=== PATIENT | male | born 1960 | race Caucasian/White ===

== ENCOUNTER 2018-09-13 21:11 | Emergency (ER) | payer BC ==
[~2018-09-13] VITALS: Ht 190.5 cm; Wt 107.3 kg
[~2018-09-13 21:11] MED LIST: ASPIRIN E.C. 8181 MG PO; MOTRIN 200200 MG/TAB PO
[2018-09-13 21:15] VITALS: TEMP 96.9
[2018-09-13 22:22] LABS: BASO # 0.1 (0.0-0.2); BASO % 0.4 % (0.0-2.0); EOS # 0.1 (0.0-0.7); GRAN # 9.9 (1.4-6.5); GRAN % 82.5 % (42.2-75.2); HEMATOCRIT 43.8 % (42.0-52.0); HEMOGLOBIN 14.7 g/dl (13.5-18.0); LYMPH # 1.1 (1.2-3.4); LYMPH % 9.2 % (20.0-51.0); MEAN CELL VOLUME 91 fl (80.0-100.0); MEAN CORPUSCULAR HEMOGLOBIN 31 pg (27.0-31.0); MEAN CORPUSCULAR HGB CONC 34 g/dl (33.0-37.0); MEAN PLATELET VOLUME 9.6 fl (7.4-10.4); MONO # 0.8 (0.1-0.6); MONO % 6.6 % (1.7-9.3); PLATELET COUNT 223 K/mm3 (130-400); RED BLOOD COUNT 4.79 M/mm3 (4.20-5.60); REDCELL DISTRIBUTION WIDTH-CV 12.5 % (11.5-14.5)
[2018-09-13 22:36] LABS: LIPASE 40 U/L (23-300)
[2018-09-13 22:41] LABS: C-REACTIVE PROTEIN < 0.5 mg/dL (0.0-0.9)
[2018-09-13 22:45] LABS: TROPONIN-I 0.013 ng/mL (0.000-0.034)
[2018-09-13] MEDS ORDERED: SYNTHROID0.1 MG/TAB PO (23:25)
[2018-09-13] MEDS ORDERED: PROLASTIN C IV (23:25)
[2018-09-13] MEDS ORDERED: TRELEGY ELLIPT1 EACH IH (23:26)
[2018-09-13 23:39] LABS: ALBUMIN 3.6 gm/dL (3.5-5.0); BILIRUBIN,TOTAL 0.3 mg/dL (0.0-1.0); CALCIUM 8.9 mg/dL (8.4-10.2); CREATININE, serum 0.98 mg/dL (0.66-1.25); POTASSIUM 4.1 mmol/L (3.4-5.0); TOTAL PROTEIN 6.7 gm/dL (6.4-8.2)
[2018-09-13 23:42] LABS: COLLECTION METHOD CLEAN CATCH
[2018-09-13 23:47] LABS: MUCOUS Present /lpf; PH 6 (5-8); SQUAMOUS EPITHELIAL None Seen /hpf; URINE APPEARANCE Clear; URINE BACTERIA None Seen /hpf; URINE BILIRUBIN Negative (NEGATIVE); URINE BLOOD Negative (NEGATIVE); URINE COLOR Yellow; URINE GLUCOSE Negative (NEGATIVE); URINE KETONE Negative (NEGATIVE); URINE LEUKOCYTE ESTERASE Negative (NEGATIVE); URINE NITRATE Negative (NEGATIVE); URINE PROTEIN(semi-quant) Negative (NEGATIVE); URINE RBC 0-2 /hpf; URINE UROBILINOGEN Negative (NEGATIVE)
[2018-09-14 00:05] VITALS: BP 115/76; PULSE 63
[2018-09-14] MEDS ORDERED: ZOFRAN ODT4 MG PO (00:33)
[2018-09-14] MEDS ORDERED: NORCO 325 MG-51 TAB PO (00:33)
== END 2018-09-14 00:55 | disposition home or self-care (01) ==
LOC: COL.ER 21:11
PROVIDERS: Family Medicine; Physician Assistant
DX: K46.9 Unspecified abdominal hernia without obstruction or gangrene (principal)
CPT/HCPCS: J2405; J7030; Q9967

== ENCOUNTER → 2018-09-15 | Outpatient (CLI) | payer BC ==
[~2018-09-15] MED LIST changes: +NORCO 325 MG-51 TAB PO; +PROLASTIN C IV; +SYNTHROID0.1 MG/TAB PO; +TRELEGY ELLIPT1 EACH IH; +ZOFRAN ODT4 MG PO
== END ==
LOC: COL.RAD 09:41
DX: R10.11 Right upper quadrant pain (principal)

== ENCOUNTER → 2018-10-14 | Outpatient (CLI) | payer BC | LOC: COL.RAD 10-04 07:30 | DX: R10.9 Unspecified abdominal pain (principal); R93.5 Abnormal findings on diagnostic imaging of other abdominal regions, including retroperitoneum; R11.0 Nausea; Z90.89 Acquired absence of other organs | CPT/HCPCS: Q9967 ==

== ENCOUNTER 2022-12-16 15:00 | Outpatient (RCR) | payer BC ==
[2022-12-02 14:29] VITALS: BP 118/70; PULSE 89; TEMP 99.1
[2022-12-09 14:37] VITALS: BP 134/90; PULSE 65; TEMP 98.5
[~2022-12-16] VITALS: Ht 190.5 cm; Wt 103.9 kg
[~2022-12-16 15:00] MED LIST changes: +VITAMIN B12 781 TAB PO; +VITAMINC1000TA PO; +ZEMAIRA IV
[2022-12-16 15:19] VITALS: BP 127/81; PULSE 72; TEMP 98.3
--- NOTE | 2022-12-16 15:41 | NUR ---
pt discharged at approx 1540. he ambulated independently to his car following his transfusion. he tolerated the Zemaira transfusion well and was free from complaints or concerns at time of discharge. his VS were within normal limits prior to transfusion and his IV was DC upon discharge.
== END 2022-12-16 16:28 | disposition home or self-care (01) ==
LOC: EUO 15:00
DX: E88.01 Alpha-1-antitrypsin deficiency (principal)
CPT/HCPCS: J0256

== ENCOUNTER 2023-01-13 14:00 | Outpatient (RCR) | payer BC ==
[2022-12-23 11:10] VITALS: BP 143/79; PULSE 65; TEMP 97.9
--- NOTE | 2022-12-23 11:54 | NUR ---
Pt discharged at approx 1150. he ambulated independently to his car upon discharge. his IV was DC'd prior to discharge and he was free from complaints or concerns. pt verbalized that he inderstood that his next appointment is next week. he tolerated PO fluids throughout his infusion.
[2022-12-30 14:15] VITALS: BP 133/79; PULSE 91; TEMP 98.8
[2023-01-06 13:50] VITALS: BP 121/80; PULSE 95; TEMP 98.4
[~2023-01-13] VITALS: Ht 190.5 cm; Wt 103.0 kg
[2023-01-13 15:08] VITALS: BP 131/78; PULSE 94; TEMP 98
== END 2023-01-13 15:00 | disposition home or self-care (01) ==
LOC: EUO 14:00
DX: E88.01 Alpha-1-antitrypsin deficiency (principal)
CPT/HCPCS: J0256

== ENCOUNTER 2023-02-16 13:00 | Outpatient (RCR) | payer BC ==
[2023-01-20 14:46] VITALS: BP 106/77; PULSE 76; TEMP 98
--- NOTE | 2023-01-20 15:07 | NUR ---
Pt ambulated to [facility] for [facility]a infusion. pt tolerated infusion well and his vs remained within normal limits. pt toleraetd po fluids during infusion. pt ambulated independently to [facility] following infusion and he was free from concerns and complaints at time of discharge.
[2023-01-27 14:49] VITALS: BP 124/69; PULSE 76; TEMP 98.1
--- NOTE | 2023-01-27 14:57 | NUR ---
pt discharged at approx 1510. he ambulated independently to [facility]. pt tolerated zemaira infusion well and tolerated po fluids throughout. pt was free from concerns and complaints at time of discharge.
[2023-02-02 13:52] VITALS: BP 122/75; PULSE 88; TEMP 98.2
--- NOTE | 2023-02-02 15:20 | NUR ---
Pt tolerated infusion witout issue. IV DC'd, pt exits dept with steady gait.
[2023-02-10 14:03] VITALS: BP 116/75; PULSE 66; TEMP 98.1
--- NOTE | 2023-02-10 16:09 | NUR ---
pt discharged at approx 1545 following Zemaira infusion. Pt ambulated independently to [facility] and was free from concerns and complaints at time of discharge.
[~2023-02-16] VITALS: Ht 190.5 cm; Wt 101.8 kg
[2023-02-16 13:51] VITALS: BP 119/83; PULSE 112; TEMP 98
--- NOTE | 2023-02-16 14:46 | NUR ---
Pt tolerated zemaira infusion well. pt ambulated independently to [facility] following infusion. pt tolerated po fluids following infusion. Pt was free from concerns and complaints at time of discharge.
== END 2023-02-16 15:01 | disposition home or self-care (01) ==
LOC: EUO 13:00
DX: E88.01 Alpha-1-antitrypsin deficiency (principal)
CPT/HCPCS: J0256

== ENCOUNTER 2023-05-19 13:00 | Outpatient (RCR) | payer BC ==
[2023-04-21 14:35] VITALS: BP 122/77; PULSE 73; TEMP 98.6
[2023-04-28 14:36] VITALS: BP 139/91; PULSE 89; TEMP 98
[2023-05-05 15:04] VITALS: BP 124/81; PULSE 70; TEMP 98.6
[2023-05-12 14:45] VITALS: BP 115/75; PULSE 88; TEMP 98.8
[~2023-05-19] VITALS: Ht 190.5 cm; Wt 101.5 kg
[~2023-05-19 13:00] MED LIST changes: +DOXYCYCLINE 10100 MG PO; +PREDNISONE10 MG PO
[2023-05-19 13:30] VITALS: BP 117/75; PULSE 80; TEMP 98.7
[2023-05-26] MEDS ORDERED: MULTIPLE VITAMI1 CAP PO (14:27)
[2023-05-26] MEDS ORDERED: SINGULAIR4 MG/PACKE PO (14:29)
[2023-07-07] MEDS ORDERED: SINGULAIR 110 MG/TAB PO (14:04)
[2023-07-07] MEDS ORDERED: PROAIR HFA0.09 MG/AC IH (14:07)
== END 2023-05-19 14:11 | disposition home or self-care (01) ==
LOC: EUO 13:00
DX: E88.01 Alpha-1-antitrypsin deficiency (principal)
CPT/HCPCS: J0256

== ENCOUNTER 2023-07-14 14:00 | Outpatient (RCR) | payer BC ==
[2023-06-23 14:01] VITALS: BP 124/79; PULSE 77; TEMP 97.7
[2023-06-30 14:51] VITALS: BP 140/104; PULSE 65
[2023-07-07 14:03] VITALS: BP 112/69; PULSE 72; TEMP 98.7
[~2023-07-14] VITALS: Ht 190.5 cm; Wt 103.0 kg
[~2023-07-14 14:00] MED LIST changes: +MULTIPLE VITAMI1 CAP PO; +PROAIR HFA0.09 MG/AC IH; +SINGULAIR 110 MG/TAB PO; +SINGULAIR4 MG/PACKE PO
[2023-07-14 14:55] VITALS: BP 126/74; PULSE 76; TEMP 97.7
== END 2023-07-14 15:12 | disposition home or self-care (01) ==
LOC: EUO 14:00
DX: E88.01 Alpha-1-antitrypsin deficiency (principal)
CPT/HCPCS: J0256

== ENCOUNTER 2023-08-18 14:00 | Outpatient (RCR) | payer BC ==
[2023-07-21 14:16] VITALS: BP 116/78; PULSE 90; TEMP 98
[2023-07-28 14:57] VITALS: BP 129/75; PULSE 68; TEMP 98.4
[2023-08-04 13:58] VITALS: BP 135/87; PULSE 85; TEMP 97.8
[2023-08-11 14:48] VITALS: BP 133/77; PULSE 82; TEMP 98
[~2023-08-18] VITALS: Ht 185.4 cm; Wt 105.1 kg
[2023-08-18 15:00] VITALS: BP 126/83; PULSE 75; TEMP 98.8
== END 2023-08-18 15:24 | disposition home or self-care (01) ==
LOC: EUO 14:00
DX: E88.01 Alpha-1-antitrypsin deficiency (principal)
CPT/HCPCS: J0256

== ENCOUNTER 2023-09-15 14:00 | Outpatient (RCR) | payer BC ==
[2023-08-25 14:03] VITALS: BP 147/93; PULSE 95; TEMP 98
[2023-09-01 14:42] VITALS: BP 122/73; PULSE 70; TEMP 98.6
[2023-09-08 14:05] VITALS: BP 116/74; PULSE 83; TEMP 98
[~2023-09-15] VITALS: Ht 185.4 cm; Wt 102.6 kg
[2023-09-15 14:17] VITALS: BP 126/79; PULSE 66; TEMP 98.4
== END 2023-09-15 14:43 | disposition home or self-care (01) ==
LOC: EUO 14:00
DX: E88.01 Alpha-1-antitrypsin deficiency (principal)
CPT/HCPCS: J0256

== ENCOUNTER 2024-05-18 14:00 | Outpatient (RCR) | payer MEDICARE, OTHER ==
[2024-05-11 14:30] VITALS: BP 113/73; PULSE 70; TEMP 98.6
--- NOTE | 2024-05-11 15:20 | NUR ---
Pt tolerated infusion without issue and remained in dept for 20 mins post infusion. He is free of complaints. IV DC'd, site wrapped with coban. Pt exits dept with steady gait.
[~2024-05-18] VITALS: Ht 185.4 cm; Wt 96.6 kg
[~2024-05-18 14:00] MED LIST changes: +WATER FOR INJECTION IV SCH; +[UNRECOGNIZED DRUG - OTHER] IV SCH
[2024-05-18 14:04] VITALS: BP 123/74; PULSE 87; TEMP 98.5
[2024-05-18] MEDS ORDERED: [UNRECOGNIZED DRUG - OTHER] IV SCH (14:30)
[2024-05-18] MEDS ORDERED: WATER FOR INJECTION STERILE IV SCH (14:30)
== END 2024-05-18 15:26 | disposition home or self-care (01) ==
LOC: EUO 14:00
DX: E88.01 Alpha-1-antitrypsin deficiency (principal)
CPT/HCPCS: J0256